=== PATIENT | female | born 1940 | race American Indian/Alaskan Native ===

== ENCOUNTER 2024-05-22 15:33 | Emergency (ER) | payer MEDICARE, MEDICAID ==
[~2024-05-22] VITALS: Ht 152.4 cm; Wt 78.0 kg
[2024-05-22 15:50] VITALS: BP 119/55; PULSE 77; RESP 16; TEMP 98.3; O2SAT 99
[2024-05-22] MEDS ORDERED: GUAI-450 MT (18:41)
[2024-05-22] MEDS ORDERED: IBUP-2029 MT (18:41)
[2024-05-22] MEDS ORDERED: P50 MT (18:41)
[2024-05-22] MEDS ORDERED: ALBU18HF2 IH (18:41)
== END 2024-05-22 19:09 | disposition home or self-care (01) ==
LOC: ER 15:33
DX: J06.9 Acute upper respiratory infection, unspecified (principal); E11.9 Type 2 diabetes mellitus without complications; I10 Essential (primary) hypertension; Z88.8 Allergy status to other drugs, medicaments and biological substances; Z20.822 Contact with and (suspected) exposure to COVID-19
CPT/HCPCS: 71045; 87426; 87804; 99284